=== PATIENT | male | born 1960 | race Caucasian/White ===

== ENCOUNTER → 2020-06-29 10:29 | Outpatient (CLI) | payer OTHER, SELFPAY ==
--- NOTE | ~2020-06-29 | MR_ITS ---
EXAMINATION: MR knee RT wo con DATE: 06/29/2020 11:16 INDICATION: Right knee pain. TECHNIQUE: Magnetic resonance imaging (MRI) of the right knee was performed without intravenous contr ast. Sequences included axial PD-weighted FS FSE, coronal PD-weighted FSE and PD-weighted FS FSE, sag ittal PD-weighted FSE, and sagittal T2-weighted FS FSE. COMPARISON: Right knee radiographs 06/08/2020 FINDINGS: Medial compartment: Medial meniscus is normal. There is cartilage surface irregularity of femoral condyle. Tibial cartila ge is normal. Lateral compartment: Lateral meniscus is normal. There is cartilage surface irregularity of tibial condyle and femoral con dyle. Patellofemoral compartment: There is shallow partial-thickness cartilage loss of patellar lateral facet. Trochlear cartilage is n ormal. Ligaments and tendons: The anterior and posterior cruciate ligaments are normal. Medial collateral ligament and lateral mayra ateral ligament complex are normal. There is mild patellar tendinopathy. Fluid: There is a small knee joint effusion. There is trace fluid in a Matson's cyst. There is mild prepatell ar and superficial infrapatellar bursitis. IMPRESSION: 1. Mild tricompartmental chondrosis. 2. Small knee joint effusion. Reviewed, dictated and finalized at location A.
== END ==
PROVIDERS: Visit Provider Nurse Practitioner Family
DX: M25.561 Pain in right knee (principal)
CPT/HCPCS: 73721

== ENCOUNTER 2021-10-18 10:08 | Outpatient (CLI) | payer OTHER, SELFPAY ==
--- NOTE | ~2021-10-18 | XR_ITS ---
EXAMINATION: XR chest 2V DATE: 10/18/2021 10:32 INDICATION: Localized swelling, mass and lump, trunk. TECHNIQUE: Frontal and lateral views of the chest were obtained. COMPARISON: None. FINDINGS: Calcified right lung nodules and calcified right hilar and mediastinal lymph nodes are cons istent with old granulomatous disease. No pleural effusion or pneumothorax. The heart size is normal. IMPRESSION: 1. No acute cardiopulmonary disease. Reviewed, dictated and finalized at location B. [employer]
== END 2021-10-18 10:09 | disposition home or self-care (01) ==
LOC: ANHIMG 10:16
PROVIDERS: PCP Internal Medicine; Visit Provider Orthopaedic Surgery
DX: R22.2 Localized swelling, mass and lump, trunk (principal)
CPT/HCPCS: 71046

== ENCOUNTER → 2021-10-29 07:28 | Outpatient (CLI) | payer OTHER, SELFPAY ==
--- NOTE | ~2021-10-29 | MR_ITS ---
EXAMINATION: MR shoulder RT wo con DATE: 10/29/2021 08:12 INDICATION: Right shoulder pain TECHNIQUE: Magnetic resonance imaging (MRI) of the right shoulder was performed without intravenous c ontrast. Sequences included axial PD-weighted FS FSE, coronal oblique PD-weighted FS FSE, coronal obl ique T2-weighted FS FSE, sagittal PD-weighted FS FSE, and sagittal T1-weighted SE. COMPARISON: None. FINDINGS: Coracoacromial arch: The acromion undersurface is curved in morphology (type II). Mild thickening at the acromial attachme nt of the coracoacromial ligament. Mild acromioclavicular osteoarthritis with small inferiorly direct ed osteophyte at the lateral head of the clavicle. Rotator cuff: Mild supraspinatus tendinopathy with small mild bursal sided tear at the anterior superior facet foot plate which measures approximately 4 mm AP and involving approximately one third of the tendon thickn ess. Mild infraspinatus tendinopathy without discrete tear. The teres minor tendon is normal. Mild godoy bscapularis tendinopathy. There is a partial-thickness and intrasubstance tear involving the superola teral quadrant of the lesser tuberosity footplate allowing medial subluxation of the long head biceps tendon across the cephalad aspect of the medial rim of the intertubercular groove and across the les ser tuberosity tear defect. Normal rotator cuff muscle bulk and signal. Biceps tendon, glenoid labrum and glenohumeral cartilage: Mild tendinopathy without discrete tear of the intra-articular portion of the long head biceps tendon . Glenoid labrum is normal. Glenohumeral cartilage is normal. Fluid: Physiologic amount of fluid in the glenohumeral joint and biceps tendon sheath. No loose osteochondra l bodies. Small amount of fluid in the subacromial/subdeltoid bursa consistent with mild bursitis. Bones: Normal marrow signal with no edema, fracture or abnormal marrow replacing process. IMPRESSION: 1. Mild supraspinatus tendinopathy with small mild bursal sided tear at the anterior greater tuberosi ty footplate of the tendon. 2. Mild subscapularis tendinopathy with partial-thickness tear involving the superolateral quadrant o f the lesser tuberosity footplate allowing medial subluxation of the long head biceps tendon across t he cephalad medial rim of the intertubercular groove. 3. Mild tendinopathy without discrete tear of the intra-articular long head biceps tendon. 4. Mild acromioclavicular osteoarthritis with mild underlying subacromial/subdeltoid bursitis. Reviewed, dictated and finalized at location A. [employer] IMPRESSION: 1. Mild supraspinatus tendinopathy with small mild bursal sided tear at the ant erior greater tuberosity footplate of the tendon. 2. Mild subscapularis tendinopathy with partial-thickness tear involving the godoy perolateral quadrant of the lesser tuberosity footplate allowing medial subluxa tion of the long head biceps tendon across the cephalad medial rim of the inter tubercular groove. 3. Mild tendinopathy without discrete tear of the intra-articular long head bic eps tendon. 4. Mild acromioclavicular osteoarthritis with mild underlying subacromial/subde ltoid bursitis.
== END ==
PROVIDERS: PCP Internal Medicine; Visit Provider Orthopaedic Surgery
DX: S46.111A Strain of muscle, fascia and tendon of long head of biceps, right arm, initial encounter (principal); M19.011 Primary osteoarthritis, right shoulder; M75.51 Bursitis of right shoulder
CPT/HCPCS: 73221